=== PATIENT | female | born 1940 | race Caucasian/White ===

== ENCOUNTER → 2016-12-04 | Outpatient (CLI) | payer MEDICARE, OTHER ==
[~2016-12-04] MED LIST: AMLO10TA2 PO; ASPI-146 PO; COMMODE 3-IN-11 MIS; CPMMACHINE; FISH1200 PO; GLUC500T4 PO; LABE200T2 PO; LACTCAP8 PO; METH500T PO; OXYC1TAB63 PO; SACC1CAP3 PO; TELM1TAB4 PO; VITA2000 PO; WALKER WHEELS/F1 MIS; XARE10TA PO
[2016-12-04 09:18] LABS: AUTOMATED NEUTROPHIL # 3.5 TH/MM3 (1.8-7.7); BASOPHIL % 0.8 % (0.0-2.0); EOSINOPHIL # 0.2 TH/MM3 (0-0.4); EOSINOPHIL % 3.4 % (0.0-4.0); HEMATOCRIT 40.9 % (35.0-46.0); HEMO FLAGS DIFF FINAL; LYMPH % 27.1 % (9.0-44.0); LYMPHOCYTE # 1.6 TH/MM3 (1.0-4.8); MEAN CELL VOLUME 85.3 FL (80.0-100.0); MEAN CORPUSCULAR HEMOGLOBIN 29.1 PG (27.0-34.0); MEAN CORPUSCULAR HGB CONC 34.1 % (32.0-36.0); MONO % 10.2 % (0.0-8.0); NEUT % 58.5 % (16.0-70.0); PLATELET COUNT 303 TH/MM3 (150-450); RED BLOOD COUNT 4.79 MIL/MM3 (4.00-5.30); RED CELL DISTRIBUTION WIDTH 13.8 % (11.6-17.2)
[2016-12-04 09:23] LABS: APTT (PATIENT) 26.7 SEC (24.3-30.1); INTERNATIONAL NORMALIZED RATIO 0.9 RATIO; PROTHROMBIN TIME - PATIENT 10.2 SEC (9.8-11.6)
[2016-12-04 09:25] LABS: BLOOD, URINE NEG (NEG); COMMENT (UR) CATH-CULT NOT IND; CULTURE IF INDICATED CATH CULTURE NOT IND; GLUCOSE,URINE NEG (NEG); KETONE, URINE NEG (NEG); MUCUS URINE FEW /lpf (OCC); NITRITE,URINE NEG (NEG); PH, URINE 5.5 (5.0-8.5); SQUAMOUS EPITHELIAL CELL URINE <1 /hpf (0-5); URINE COLOR YELLOW (YELLW/STRAW)
[2016-12-04 09:50] LABS: BICARBONATE 24.7 MEQ/L (21.0-32.0); POTASSIUM 3.7 MEQ/L (3.5-5.1)
[2016-12-04 10:33] LABS: WESTERGREN SEDIMENTATION RATE 14 mm/hr (0-30)
--- NOTE | 2016-12-05 05:26 | EKG ---
Date Performed: 12/04/2016 Time Performed: 08:26:32 PTAGE: 76 years EKG: ECTOPIC ATRIAL RHYTHM WITH FIRST DEGREE AV BLOCK POSSIBLE RIGHT VENTRICULAR HYPERTROPHY ABN ORMAL ECG NO PREVIOUS TRACING DOCTOR: Anand Andrews Interpretating Date/Time 12/05/2016 05:16:32
== END ==
LOC: CPRE 07:57
PROVIDERS: ATTEND Orthopaedic Surgery Orthopaedic Surgery of the Spine
DX: Z01.810 Encounter for preprocedural cardiovascular examination (principal); Z01.812 Encounter for preprocedural laboratory examination; M17.11 Unilateral primary osteoarthritis, right knee; R94.31 Abnormal electrocardiogram [ECG] [EKG]
CPT/HCPCS: 36415; 80048; 81001; 85025; 85610; 85652; 85730; 93005

== ENCOUNTER 2016-12-15 05:20 | Inpatient (IN) | payer MEDICARE, OTHER ==
[~2016-12-15] VITALS: Ht 162.6 cm; Wt 89.5 kg
[~2016-12-15 05:20] MED LIST changes: -COMMODE 3-IN-11 MIS; -CPMMACHINE; -OXYC1TAB63 PO; -WALKER WHEELS/F1 MIS; -XARE10TA PO
[2016-12-15] MEDS ORDERED: CHLORHEXIDINE GLUCONATE 2 % 1 PACK (2 CLOTHS) TOPICAL PRN (06:00)
[2016-12-15] MEDS ORDERED: LACTATED RINGER'S 1000 ML IV PRN (06:00)
[2016-12-15] MEDS ORDERED: POVIDONE IODINE 5% (ANTISEPSIS KIT) 4 APPLICATIONS EACH NARE PRN (06:00)
[2016-12-15] MEDS ORDERED: METOPROLOL TARTRATE 25 MG TAB PO PRN (06:00)
[2016-12-15] MEDS ORDERED: INSULIN HUMAN REGULAR 1,000 UNITS/10 ML VIAL SQ PRN (06:00)
[2016-12-15] MEDS ORDERED: SODIUM CHLORID 0.9% 500 ML IV PRN (06:00)
--- NOTE | 2016-12-15 06:00 | MH ---
cc: RODRIGUEZ COLE M.D. DATE OF ADMISSION: 12/15/2016 ADMISSION DIAGNOSIS Osteoarthritis of the left knee. HISTORY This is a 76-year-old female with significant left knee pain. Investigative studies show evidence of extensive arthritis of the left knee. Despite conservative care the patient is painful and symptomatic. She presents for surgical treatment. PAST MEDICAL HISTORY, SOCIAL HISTORY, FAMILY HISTORY, REVIEW OF SYSTEMS See attached notes. PHYSICAL EXAMINATION GENERAL: A 76-year-old female in moderate distress with her left knee. HEENT: Normocephalic, atraumatic. Pupils equal, round, reactive to light and accommodation. Extraocular motions intact. NECK: Supple. CHEST: Clear. HEART: Regular rate and rhythm. ABDOMEN: Soft, nontender with normoactive bowel sounds. MUSCULOSKELETAL EXAMINATION: Left knee pain with range of motion, moderate deformity, pain with range of motion. Neurologic vascular examination within normal limits. IMPRESSION Osteoarthritis of the left knee. PLAN Left total knee replacement arthroplasty. CONSENT There are risks with surgery including infection, bleeding, loss of motion, continued pain, need for further surgery, neurologic and vascular injury. The patient understands these issues and wishes to press on with the surgery as outlined above. MD SHEREE Yanez/IVETH /11:25 PM /5:52 AM
[2016-12-15] MEDS ORDERED: GENTAMICIN SULFATE 80 MG/2 ML VIAL ONE (06:08)
[2016-12-15] MEDS ORDERED: VANCOMYCIN 1000 MG/NS 250 ML (for <70 kg) IV SCH ×2 (06:15)
[2016-12-15] MEDS ORDERED: ceFAZolin 2 GM PREMIX 50 ML IV SCH (06:15)
[2016-12-15] MEDS ORDERED: POVIDONE IODINE 7.5% SCRUB 118 ML BOTTLE TOPICAL SCH (06:15)
[2016-12-15] MEDS ORDERED: TRANEXAMIC ACID INJ 890 MG in SODIUM CHLORIDE 0.9% INJ 100 ML IV SCH (06:15)
[2016-12-15] MEDS ORDERED: EXPAREL PERI-ARTICULAR INJECTION (TOTAL VOL. 60 ML) P-ARTICULR SCH ×2 (06:15)
[2016-12-15] MEDS ORDERED: CLINDAMYCIN PHOS 600 MG/4 ML VIAL ONE ×2 (06:48→06:53)
[2016-12-15] MEDS ORDERED: ACETAMINOPHEN 1000 MG/100 ML 100 ML IV ONE (07:08)
[2016-12-15] MEDS ORDERED: FAMOTIDINE 20 MG/2 ML VIAL ONE (07:09)
[2016-12-15] MEDS ORDERED: CLINDAMYCIN 600 MG/NS 100 ML IV PRN ×2 (07:15)
[2016-12-15] MEDS ORDERED: BUPIVACAINE HCL PF 0.5% 30 ML VIAL ONE (07:33)
[2016-12-15] MEDS ORDERED: XARE10TA PO (07:58)
[2016-12-15] MEDS ORDERED: OXYC1TAB63 PO (07:58)
[2016-12-15] MEDS ORDERED: MORPHINE SULFATE 8 MG/ML INJ IM PRN (08:00)
[2016-12-15] MEDS ORDERED: MISCELLANEOUS PHARMACY INFORMATION XX ONE (08:00)
[2016-12-15] MEDS ORDERED: oxyCODONE/ACETAMINOPHEN 5 MG/325 MG TAB PO PRN (08:00)
[2016-12-15] MEDS ORDERED: SODIUM CHLORIDE 0.9% FLUSH 5 ML FLUSH IVF PRN (08:00)
[2016-12-15] MEDS ORDERED: TEMAZEPAM 15 MG CAP PO PRN (08:00)
[2016-12-15] MEDS ORDERED: MISCELLANEOUS NURSING INFORMATION XX PRN (08:00)
[2016-12-15] MEDS ORDERED: NALOXONE HCL 0.4 MG/ML AMP IV PUSH PRN (08:00)
[2016-12-15] MEDS ORDERED: Post-op Orders (for Pharmacy) MISC XX ONE (08:00)
[2016-12-15] MEDS: LABETALOL HCL 200 MG TAB PO SCH ×2 (09:00→20:58)
[2016-12-15] MEDS: METHYLDOPA 500 MG TAB PO SCH ×2 (09:00→20:58)
[2016-12-15] MEDS: MAGNESIUM HYDROXIDE SUSP 30 ML CUP PO SCH ×2 (09:00→20:57)
[2016-12-15] MEDS ORDERED: TELMISARTAN HYDROCHLOROTHIAZIDE PO SCH (09:00)
[2016-12-15] MEDS: SODIUM CHLORIDE 0.9% FLUSH 5 ML FLUSH IVF SCH ×2 (09:00→20:54)
--- NOTE | 2016-12-15 09:19 | PD.OP ---
cc: Anurag Hahn MD Operative Report Date of Surgery: Dec 15, 2016 Preoperative Diagnosis: Osteoarthritis left knee Postoperative Diagnosis: Same Procedure: Left total knee replacement arthroplasty Anesthesia: Gen. with regional block Surgeon: Anurag Hahn Software Consultant(s): JENIFER Mason Operation and Findings: EBL: 50 cc INDICATION: This patient presents with long-standing arthritis of the knee. Attachment record documents conservative measures. The patient now presents for surgical treatment. NOTE: Mayte Mason PA-C was present for the entire surgical procedure as my biology research assistant. In my medical opinion her skill and care was necessary for proper management of this patient. TOURNIQUET TIME: 48 minutes COMPANY: [employer] FEMUR: Size 3, cruciate retaining TIBIA: Size 3, fixed bearing PATELLA: 35 mm POLYETHYLENE INSERT: 9 mm PROCEDURE: This patient was brought the operating room and anesthetized in the supine position. The patient was positioned supine on the table. The tourniquet was placed about the thigh, and the leg was scrubbed with alcohol followed by Hibiclens followed by ChloraPrep and draped sterilely. A timeout was done, and antibiotics were given. After exsanguination the tourniquet was inflated to 250 mmHg. An anterior incision was made and a median parapatellar arthrotomy was performed. The patella was released laterally and subluxed allowing freehand cut of the patella which was then sized. A metal cap was placed over the exposed patellar surface for protection. A towing pilot hole was placed in the distal femur allowing a 5 valgus cut removing 10 mm from the distal femur. Anterior posterior and chamfer cuts were made. The posterior stabilize osteotomy was made. The attention was directed to the tibia. Retractors were positioned. The external alignment guide was used allowing the lateral tibia to be used as referencing guide and cut utilizing an oscillating saw taking care to avoid any injury to the surrounding soft tissues. This was sized properly. Trial reduction showed that the insert fit nicely. The patient had range of motion extension 0 flexion 125. A medial release was not necessary. The bony surfaces prepared. On the back table 2 packets of methylmethacrylate were mixed. The components were cemented. Excess cement was removed. The tourniquet let down and hemostasis was controlled. The final plastic insert was inserted. Range of motion was the same as previously noted. A drain was brought through a separate stab incision. The arthrotomy was repaired with interrupted #1 Vicryl suture, subcutaneous tissue 2-0 Vicryl suture and skin with metallic virgen A sterile dressing was applied. Sponge counts, needle counts and instrument counts were all correct. The patient tolerated procedure well and was taken to recovery in satisfactory condition. FINDINGS: There was severe osteoarthritis of the knee. Contractures were released. Vital stability was felt to be excellent. No complication was appreciated. Anurag Hahn MD Dec 15, 2016 09:19
[2016-12-15] MEDS ORDERED: *RESP: ALBUTEROL 2.5 MG/3 ML NEB (PRN) PERIprocedural Use ONLY NEB ONE (09:53)
[2016-12-15] MEDS ORDERED: DO NOT ADM ANY ANTICOAGULANT DRUGS PRN (10:15)
[2016-12-15] MEDS ORDERED: *morphine SULFATE 8 MG/ML PERIprocedure ONLY ONE (10:18)
[2016-12-15] MEDS: LACTATED RINGER'S 1000 ML INJ 1,000 ML IV SCH ×2 (10:31→20:58)
[2016-12-15] MEDS: MORPHINE SULFATE 30 MG/30 ML PCA IV SCH ×2 (10:33→14:30)
--- NOTE | 2016-12-15 10:39 | RADRPT ---
EXAM DATE/TIME: 12/15/2016 09:56 [facility] COMPARISON: No previous studies available for comparison. INDICATIONS : Post op total left knee replacement. MEDICAL HISTORY : Osteoarthritis. Hypertension Gastroesophageal reflux disease. SURGICAL HISTORY : Total knee replacement, left. Hemmorhoidectomy. ENCOUNTER: Initial ACUITY: 1 day PAIN SCORE: 5/10 LOCATION: Left knee FINDINGS: Patient is status post placement of a left knee prosthesis. There is good position and alignment of t he prosthesis and bony structures. The bony structures are grossly intact. Postsurgical changes are p resent. CONCLUSION: Good position and alignment on this postoperative examination. Tello Reynolds MD on December 15, 2016 at 10:38 Board Certified Radiologist. This report was verified electronically.
[2016-12-15] MEDS ORDERED: ROCURONIUM INJ 50 MG/5 ML SYRINGE IV PUSH ONE (12:00)
[2016-12-15] MEDS ORDERED: GLYCOPYRROLATE 1 MG/5 ML VIAL IV PUSH ONE (12:00)
[2016-12-15] MEDS ORDERED: PROPOFOL 200 MG/20 ML AMP IV ONE (12:00)
[2016-12-15] MEDS ORDERED: MIDAZOLAM HCL 2 MG/2 ML VIAL IV ONE (12:00)
[2016-12-15] MEDS ORDERED: DEXAMETHASONE SOD PHOS 4 MG/ML VIAL IV ONE (12:00)
[2016-12-15] MEDS ORDERED: ONDANSETRON HCL 4 MG/2 ML VIAL IV PUSH ONE (12:00)
[2016-12-15] MEDS ORDERED: LIDOCAINE HCL 1% PF 5 ML AMPULE OTHER ONE (12:00)
[2016-12-15] MEDS ORDERED: ePHEDrine/NS 25 MG/5 ML SYR IV ONE (12:00)
[2016-12-15] MEDS ORDERED: PHENYLEPH/NS 1000 MCG/10 ML SYR IV ONE (12:00)
[2016-12-15] MEDS ORDERED: NEOSTIGMINE 3 MG/3 ML SYR IV ONE (12:00)
[2016-12-15] MEDS: PCA - TOTAL MG MORPHINE DELIVERED PER SHIFT SCH ×2 (14:00→22:00)
[2016-12-15] MEDS: HYDROCHLOROTHIAZIDE 12.5 MG CAP PO SCH (15:00)
[2016-12-15] MEDS: LOSARTAN 50 MG TAB PO SCH (15:00)
[2016-12-15 15:41] VITALS: BP 137/77; PULSE 72; RESP 19; TEMP 95.4; O2SAT 97
[2016-12-15 19:13] VITALS: BP 138/75; PULSE 86; RESP 18; TEMP 97.1; O2SAT 94
[2016-12-15 19:50] VITALS: O2SAT 97
[2016-12-15] MEDS: SENNOSIDES 8.6 MG TAB PO SCH (20:57)
[2016-12-15 23:09] VITALS: BP 153/87; PULSE 90; RESP 18; TEMP 97.7; O2SAT 96
[2016-12-16] VITALS (7 sets, daily range): BP systolic 103–155; BP diastolic 61–76; PULSE 70–87; RESP 15–19; TEMP 96.4–99.5; O2SAT 93–96
[2016-12-16] MEDS: oxyCODONE/ACETAMINOPHEN 5 MG/325 MG TAB PO PRN ×4 (04:27→19:57)
[2016-12-16] MEDS: PCA - TOTAL MG MORPHINE DELIVERED PER SHIFT SCH (06:00)
[2016-12-16] MEDS: METHYLDOPA 500 MG TAB PO SCH ×2 (08:15→19:57)
[2016-12-16] MEDS: RIVAROXABAN 10 MG TAB PO SCH (08:16)
[2016-12-16] MEDS: LOSARTAN 50 MG TAB PO SCH (08:16)
[2016-12-16] MEDS: MAGNESIUM HYDROXIDE SUSP 30 ML CUP PO SCH ×2 (08:18→19:56)
[2016-12-16 08:21] LABS: REVIEW FLAG FINAL
[2016-12-16] MEDS: LABETALOL HCL 200 MG TAB PO SCH ×2 (08:24→19:57)
[2016-12-16] MEDS: SODIUM CHLORIDE 0.9% FLUSH 5 ML FLUSH IVF SCH ×2 (08:24→20:01)
[2016-12-16] MEDS: LACTATED RINGER'S 1000 ML INJ 1,000 ML IV SCH ×2 (08:24→20:02)
[2016-12-16] MEDS: HYDROCHLOROTHIAZIDE 12.5 MG CAP PO SCH (08:24)
[2016-12-16] MEDS ORDERED: CPMMACHINE (08:31)
[2016-12-16] MEDS ORDERED: WALKER WHEELS/F1 MIS (08:32)
[2016-12-16] MEDS ORDERED: COMMODE 3-IN-11 MIS (08:33)
--- NOTE | 2016-12-16 08:35 | HHI.DCPOC ---
Discharge Care Plan Diagnosis: (1) Osteoarthritis of left knee Your Health Problems Are: Incision/Drains Swelling Goals to Promote Your Health * To prevent worsening of your condition and complications * To maintain your health at the optimal level Directions to Meet Your Goals Take your medications as prescribed Follow your dietary instruction Follow activity as directed Keep your appointments as scheduled Take your immunizations and boosters as scheduled If your symptoms worsen call your PCP, if no PCP go to Urgent Care Center or Emergency Room Smoking is Dangerous to Your Health. Avoid second hand smoke Call the 24-hour hour crisis hotline for domestic abuse at Cristina Judd Dec 16, 2016 08:35
--- NOTE | 2016-12-16 08:37 | HHI.FF ---
Face to Face Verification Diagnosis: (1) Osteoarthritis of left knee Physical Therapy Gait training, Safety evaluation, Transfer training, bed to chair Knee: Total knee, Protocol: Left, Full weight bearing Canvas Knee Splint: When in bed & 2 pillows btw thighs Additional Instructions PT 4 days/wk for 10 days. WBAT LLE. TKA precautions. CPM twice daily as tolerated, 0-60 with goal 100 flexion. Nursing RN Days per Week: 2 x Week(s): 1 Dressing Changes: Do not change dressing Additional Instructions Vitals assessment. Dressing assessment - do not change unless saturated or erythema I have seen patient Felisha Antunez on 12/16/16. My clinical findings support the need for the requested home health care services because: Limited ability to care for self High risk of falls I certify that my clinical findings support that this patient is homebound because: Post-op weakness Unsteady gait/balance Cristina Judd Dec 16, 2016 08:37
--- NOTE | 2016-12-16 08:39 | HHI.DS ---
Discharge Summary Admission Date Dec 15, 2016 at 05:20 Discharge Date: Dec 17, 2016 Admitting Diagnosis see below Diagnosis: (1) Osteoarthritis of left knee Diagnosis: Principal ICD Codes: M17.12 - Unilateral primary osteoarthritis, left knee Procedures Left total knee arthroplasty Brief History This is a 76 year old female patient CBC/BMP: 12/16/16 0712 Significant Findings Laboratory Tests Test 12/16/16 07:12 Hematocrit 34.0 % (35.0-46.0) Hospital Course Surgical treatment was performed on the day of admission without complications. She was found to be stable in PACU and transferred to the orthopaedic floor. Pain was controlled with IV and oral medications. DVT prophylaxis was initiated pod#1 with xarelto. The patient was compliant with physical therapy and all activity modifications. After _3__ days she was found to be stable and discharged __SNF . oxycodone xarelto Pt Condition on Discharge: Stable Discharge Disposition: Discharge to SNF Discharge Instructions Diet Instructions: As Tolerated, No Restrictions, High Fiber Diet Activities You Can Perform: Weight Bearing as Kathryn Activities to Avoid: Strenuous Activity Additional Activity Instruc.: TKA precautions New Medications: Commode 3-in-1 (Commode 3-in-1) 1 Mis Mis EA .ROUTE DIRECTED, #1 0 Refills CPM-Continuous Passive Motion Machine (CPM-Continuous Passive Motion Machine) 1 Ea Device EA .ROUTE DIRECTED, #1 0 Refills Walker with Front Wheels (Walker with Front Wheels) 1 Mis Mis EA .ROUTE DIRECTED, #1 0 Refills Oxycodone-Acetaminophen (Oxycodone-Acetaminophen) 5-325 mg Tab 1 TAB PO Q4H PRN for PAIN, #50 TAB Rivaroxaban (Xarelto) 10 Mg Tab 10 MG PO Q24H for Prevent Blood Clot, #15 TAB Continued Medications: Amlodipine (Amlodipine) 10 Mg Tab 10 MG PO DAILY for Blood Pressure Management, #30 TAB 0 Refills Cholecalciferol (Vitamin D3) 2,000 Unit Cap 2000 UNITS PO DAILY for Nutritional Supplement, #1 BOTTLE 0 Refills Glucosamine-Chondroitin (Glucosamine-Chondroitin) 500-400 Mg Tab 1 TAB PO DAILY for Herbal Supplements, TAB 0 Refills Labetalol (Labetalol) 200 Mg Tab 200 MG PO BID for Blood Pressure Management, TAB 0 Refills Lactobacillus Acidophilus (Probiotic) 10 Billion Cell Cap 3 CAP PO DAILY for Nutritional Supplement, #90 CAP 0 Refills Methyldopa (Methyldopa) 500 Mg Tab 500 MG PO BID for Blood Pressure Management, TAB 0 Refills [place]-3 Fatty Acids (Fish Oil 1200 mg) 360 Mg-1,200 Mg Cap 1 CAP PO DAILY Saccharomyces Boulardii (Probiotic) 250 Mg Cap 250 MG PO BID for Nutritional Supplement, CAP 0 Refills Telmisartan-Hydrochlorothiazide (Telmisartan-Hydrochlorothiazide) 80-12.5 Mg Tab 1 TAB PO DAILY for Blood Pressure Management, #30 TAB 0 Refills Discontinued Medications: Aspirin DR (Ecotrin Regular Strength) 325 Mg Tabdr 325 MG PO DAILY, #30 TAB 0 Refills Cristina Judd Dec 16, 2016 08:39
--- NOTE | 2016-12-16 13:12 | PD.ORT.PN ---
Subjective Subjective Remarks Doing better this morning. She has already gotten out of bed and walked twice. She struggled with sedation and hallucination last night after using the morphine. That was discontinued and she improved greatly. She notes left knee pain but fewer spasms than preop. She is pleased and states she can 'already tell a difference'. Denies CP, SOB or abd pain. Objective Vitals Vital Signs Date Time Temp Pulse Resp B/P (MAP) Pulse Ox O2 Delivery O2 Flow Rate FiO2 12/16/16 11:49 98.3 70 19 103/61 (75) 94 12/16/16 08:00 98.8 81 19 119/62 (81) 94 12/16/16 03:58 98.8 87 18 141/75 (97) 93 12/15/16 23:09 97.7 90 18 153/87 (109) 96 12/15/16 19:50 97 21 12/15/16 19:13 97.1 86 18 138/75 (96) 94 12/15/16 15:41 95.4 72 19 137/77 (97) 97 I/O 12/15/16 12/15/16 12/15/16 12/16/16 12/16/16 12/16/16 07:00 15:00 23:00 07:00 15:00 23:00 Intake Total 925 ml 1126 ml 762 ml Output Total 3090 ml 80 ml 90 ml Balance -2165 ml 1046 ml 672 ml Intake Oral 480 ml 360 ml IV Total 925 ml 646 ml 402 ml Output Drainage Total 40 ml 80 ml 90 ml Estimated Blood Loss 50 ml Other 3000 ml # Voids 3 3 # Bowel Movements 0 0 Result Diagram: 12/16/16 0712 Procedures Left total knee arthroplasty Objective Remarks Sitting up in chair, Granddaughter Carlota at bedside NAD AAOx3 LLE Dressing intact, mild drainage, drain in place, mild swelling, no erythema thigh and calf supple, neg homans +motor at, +sens, +nvi Assessment & Plan Ortho Post Op Day #: 1 Problem List: (1) Osteoarthritis of left knee ICD Codes: M17.12 - Unilateral primary osteoarthritis, left knee Qualifiers: Qualified Codes: M17.12 - Unilateral primary osteoarthritis, left knee Assessment and Plan pod#1 s/p L TKA Ortho stable. AAOx3 despite hx of sedation last night. COUNTY ADMINISTRATOR dc'd. PO meds as needed. D/C left knee drain. Ok to change drain site dressing only. Hold off on changing incision dressing. Xarelto 10mg qd. PT - WBAT LLE. CPM bid. D/C planning, likely SNF wednesday. DME written. Cristina Judd Dec 16, 2016 13:12
[2016-12-16] MEDS: SENNOSIDES 8.6 MG TAB PO SCH (19:56)
[2016-12-17] VITALS: BP 141/65; PULSE 84; RESP 18; TEMP 95.9; O2SAT 93
[2016-12-17 08:00] VITALS: BP 139/71; PULSE 83; RESP 18; TEMP 97.2; O2SAT 95
[2016-12-17] MEDS: LOSARTAN 50 MG TAB PO SCH (08:42)
[2016-12-17] MEDS: LABETALOL HCL 200 MG TAB PO SCH ×2 (08:42→21:30)
[2016-12-17] MEDS: METHYLDOPA 500 MG TAB PO SCH ×2 (08:42→21:31)
[2016-12-17] MEDS: SODIUM CHLORIDE 0.9% FLUSH 5 ML FLUSH IVF SCH ×2 (08:43→21:00)
[2016-12-17] MEDS: HYDROCHLOROTHIAZIDE 12.5 MG CAP PO SCH (08:43)
[2016-12-17] MEDS: MAGNESIUM HYDROXIDE SUSP 30 ML CUP PO SCH ×2 (08:43→21:00)
[2016-12-17] MEDS: RIVAROXABAN 10 MG TAB PO SCH (08:43)
--- NOTE | 2016-12-17 08:47 | PD.ORT.PN ---
Subjective Subjective Remarks She continues to improve. She was able to get ample rest last night. She has made progress with PT. Still planning on d/c to SNF tomorrow. Objective Vitals Vital Signs Date Time Temp Pulse Resp B/P (MAP) Pulse Ox O2 Delivery O2 Flow Rate FiO2 12/17/16 00:00 95.9 84 18 141/65 (90) 93 12/16/16 19:44 96 21 12/16/16 19:00 99.5 85 15 155/76 (102) 95 12/16/16 15:36 96.4 77 19 125/70 (88) 96 12/16/16 11:49 98.3 70 19 103/61 (75) 94 12/16/16 09:48 95 I/O 12/16/16 12/16/16 12/16/16 12/17/16 12/17/16 12/17/16 07:00 15:00 23:00 07:00 15:00 23:00 Intake Total 762 ml 850 ml 480 ml 480 ml Output Total 90 ml Balance 672 ml 850 ml 480 ml 480 ml Intake Oral 360 ml 850 ml 480 ml 480 ml IV Total 402 ml Output Drainage Total 90 ml # Voids 3 4 3 2 # Bowel Movements 0 0 1 0 Result Diagram: 12/16/16 0712 Procedures Left total knee arthroplasty Objective Remarks Sitting up in bed, Granddaughter Carlota at bedside NAD AAOx3 LLE Dressing intact, no new draiange, drain removed and site clear, mild swelling, no erythema thigh and calf supple, neg homans +motor at, +sens, +nvi Assessment & Plan Ortho Post Op Day #: 2 Problem List: (1) Osteoarthritis of left knee ICD Codes: M17.12 - Unilateral primary osteoarthritis, left knee Qualifiers: Qualified Codes: M17.12 - Unilateral primary osteoarthritis, left knee Assessment and Plan pod#2 s/p L TKA Ortho stable. Continues to improve. [employer]OR EXPRESS CLERK dc'd. PO meds as needed. Hold dressing changes unless saturated. Xarelto 10mg qd. PT - WBAT LLE. CPM bid. D/C planning, likely SNF wednesday. DME written. Cristina Judd Dec 17, 2016 08:47
[2016-12-17] MEDS: LACTATED RINGER'S 1000 ML INJ 1,000 ML IV SCH ×2 (09:50→22:20)
[2016-12-17 12:00] VITALS: BP 92/56; PULSE 66; RESP 18; TEMP 97.4; O2SAT 94
[2016-12-17 16:00] VITALS: BP 151/70; PULSE 72; RESP 18; TEMP 97.4; O2SAT 97
[2016-12-17] MEDS: oxyCODONE/ACETAMINOPHEN 5 MG/325 MG TAB PO PRN (19:30)
[2016-12-17 20:00] VITALS: BP 136/72; PULSE 81; RESP 16; TEMP 99.9; O2SAT 95
[2016-12-17] MEDS: SENNOSIDES 8.6 MG TAB PO SCH (21:00)
[2016-12-18] VITALS: BP 152/83; PULSE 82; RESP 16; TEMP 97.6; O2SAT 96
[2016-12-18 04:00] VITALS: BP 121/73; PULSE 69; RESP 17; TEMP 97.7; O2SAT 95
[2016-12-18 07:47] VITALS: BP 134/74; PULSE 75; RESP 19; TEMP 96.9; O2SAT 93
--- NOTE | 2016-12-18 08:25 | PD.ORT.PN ---
Subjective Subjective Remarks She states she had another 'good night' last night. She is pleased. She only took 'a couple' pain pills yesterday. No new complaints. She is ready for d/c to SNF. Objective Vitals Vital Signs Date Time Temp Pulse Resp B/P (MAP) Pulse Ox O2 Delivery O2 Flow Rate FiO2 12/18/16 07:47 96.9 75 19 134/74 (94) 93 12/18/16 04:00 97.7 69 17 121/73 (89) 95 12/18/16 00:00 97.6 82 16 152/83 (106) 96 12/17/16 20:00 99.9 81 16 136/72 (93) 95 12/17/16 16:00 97.4 72 18 151/70 (97) 97 12/17/16 12:00 97.4 66 18 92/56 (68) 94 I/O 12/17/16 12/17/16 12/17/16 12/18/16 12/18/16 12/18/16 07:00 15:00 23:00 07:00 15:00 23:00 Intake Total 480 ml 1680 ml 480 ml Balance 480 ml 1680 ml 480 ml Intake Oral 480 ml 1680 ml 480 ml # Voids 2 5 2 # Bowel Movements 0 1 Result Diagram: 12/16/16 0712 Procedures Left total knee arthroplasty Objective Remarks Sitting up in chair, Granddaughter Carlota at bedside NAD AAOx3 LLE Dressing intact, no new drainage, drain removed and site clear, mild swelling, no erythema thigh and calf supple, neg homans +motor at, +sens, +nvi Assessment & Plan Ortho Post Op Day #: 3 Problem List: (1) Osteoarthritis of left knee ICD Codes: M17.12 - Unilateral primary osteoarthritis, left knee Qualifiers: Qualified Codes: M17.12 - Unilateral primary osteoarthritis, left knee Assessment and Plan pod#3 s/p L TKA Ortho stable. Ok to d/c to SNF later today after PT. PO pain meds as needed. Hold dressing changes unless saturated. Xarelto 10mg qd. PT - WBAT LLE. CPM bid. F/U in 2 weeks as scheduled. DME written. [id number] signed. Cristina Judd Dec 18, 2016 08:24
[2016-12-18] MEDS: LABETALOL HCL 200 MG TAB PO SCH (08:53)
[2016-12-18] MEDS: SODIUM CHLORIDE 0.9% FLUSH 5 ML FLUSH IVF SCH (08:53)
[2016-12-18] MEDS: MAGNESIUM HYDROXIDE SUSP 30 ML CUP PO SCH (08:54)
[2016-12-18] MEDS: HYDROCHLOROTHIAZIDE 12.5 MG CAP PO SCH (08:54)
[2016-12-18] MEDS: METHYLDOPA 500 MG TAB PO SCH (08:55)
[2016-12-18] MEDS: RIVAROXABAN 10 MG TAB PO SCH (08:55)
[2016-12-18] MEDS: LOSARTAN 50 MG TAB PO SCH (08:55)
[2016-12-18] MEDS: oxyCODONE/ACETAMINOPHEN 5 MG/325 MG TAB PO PRN (08:58)
[2016-12-18] MEDS: LACTATED RINGER'S 1000 ML INJ 1,000 ML IV SCH (10:50)
[2016-12-18 10:52] VITALS: BP 88/53; PULSE 69
[2016-12-18 11:45] VITALS: BP 96/57; PULSE 68; RESP 19; TEMP 97.8; O2SAT 93
== END 2016-12-18 11:58 | DRG 470 ==
LOC: HSDI 05:20 → N06A 13:43
PROVIDERS: ADMIT Orthopaedic Surgery Orthopaedic Surgery of the Spine; ATTEND Orthopaedic Surgery Orthopaedic Surgery of the Spine
PROC: 3E0T3BZ Introduction of Anesthetic Agent into Peripheral Nerves and Plexi, Percutaneous Approach (ICD-10-PCS; 2016-12-15)
PROC: 0SRD0J9 Replacement of Left Knee Joint with Synthetic Substitute, Cemented, Open Approach (ICD-10-PCS; principal; 2016-12-15 07:18)
DX: M17.12 Unilateral primary osteoarthritis, left knee (principal); I10 Essential (primary) hypertension; R44.3 Hallucinations, unspecified; E78.5 Hyperlipidemia, unspecified; K21.9 Gastro-esophageal reflux disease without esophagitis; Z87.891 Personal history of nicotine dependence; T40.2X5A Adverse effect of other opioids, initial encounter
CPT/HCPCS: 73560; 85014; 85018; 86850; 86900; 86901; 86920; 94150; 94664; C1776; C9290; J0131; J0690; J1100; J1580; J2250; J2270; J2370; J2405; J2710; J3010; J3370; J7050; J7120; J7613; L1830

== ENCOUNTER 2017-07-06 09:00 | Inpatient (IN) | payer MEDICARE, MEDICAID ==
[~2017-07-06] VITALS: Ht 163.8 cm; Wt 87.4 kg
[~2017-07-06 09:00] MED LIST changes: -ASPI-146 PO; -FISH1200 PO; -LABE200T2 PO; -METH500T PO; -SACC1CAP3 PO; +WALKER WHEELS/F1 MIS
[2017-07-19] MEDS ORDERED: LOPE-1 PO (15:31)
[2017-07-20] MEDS ORDERED: OMEGCAP PO (08:21)
[2017-07-20] MEDS ORDERED: MELA1TAB18 PO (08:21)
[2017-07-20] MEDS ORDERED: CRANCAP10 PO (08:21)
[2017-07-20] MEDS ORDERED: ASPI81TA23 PO (08:21)
[2017-07-20] MEDS ORDERED: METO1TAB43 PO (08:21)
[2017-07-22] MEDS ORDERED: SODIUM CHLORID 0.9% 500 ML IV PRN (09:00)
[2017-07-22] MEDS ORDERED: INSULIN HUMAN REGULAR 1,000 UNITS/10 ML VIAL SQ PRN (09:00)
[2017-07-22] MEDS ORDERED: METOPROLOL TARTRATE 25 MG TAB PO PRN (09:00)
[2017-07-22] MEDS ORDERED: POVIDONE IODINE 5% (ANTISEPSIS KIT) 4 APPLICATIONS EACH NARE PRN (09:00)
[2017-07-22] MEDS ORDERED: LACTATED RINGER'S 1000 ML IV PRN (09:00)
[2017-07-22] MEDS ORDERED: CHLORHEXIDINE GLUCONATE 2 % 1 PACK (2 CLOTHS) TOPICAL PRN (09:00)
[2017-07-22] MEDS ORDERED: FAT EMULSION 20% INJ 0 ML ONE (09:11)
[2017-07-22] MEDS ORDERED: CHLORHEXIDINE GLUCONATE 4% SOLN 120 ML BTL TOPICAL SCH (09:15)
[2017-07-22] MEDS ORDERED: ceFAZolin 2 GM PREMIX 50 ML IV SCH (09:15)
[2017-07-22] MEDS ORDERED: EXPAREL PERI-ARTICULAR INJECTION (TOTAL VOL. 60 ML) P-ARTICULR SCH ×2 (09:15)
[2017-07-22] MEDS ORDERED: SODIUM CHLORIDE 0.9% IV SCH (09:15)
[2017-07-22] MEDS ORDERED: TRANEXAMIC ACID IV SCH (09:15)
[2017-07-22] MEDS ORDERED: VANCOMYCIN 1 GM/200 ML PREMIX IV SCH (09:15)
[2017-07-22] MEDS ORDERED: GENTAMICIN SULFATE 80 MG/2 ML VIAL ONE (09:48)
[2017-07-22] MEDS ORDERED: BUPIVACAINE/EPINEPHRINE 0.5% PF 10 ML VIAL ONE (09:48)
[2017-07-22 09:54] VITALS: PULSE 75
[2017-07-22] MEDS ORDERED: BUPIVACAINE LIPOSOME PF 1.3% 20 ML VIAL ONE (10:25)
[2017-07-22] MEDS ORDERED: MIDAZOLAM HCL 5 MG/5 ML VIAL ONE (10:25)
[2017-07-22] MEDS ORDERED: PROPOFOL 200 MG/20 ML AMP IV ONE (12:00)
[2017-07-22] MEDS ORDERED: PHENYLEPH/NS 1000 MCG/10 ML SYR IV ONE (12:00)
[2017-07-22] MEDS ORDERED: DEXAMETHASONE SOD PHOS 4 MG/ML VIAL IV ONE (12:00)
[2017-07-22] MEDS ORDERED: ePHEDrine/NS 25 MG/5 ML SYRINGE IV ONE (12:00)
[2017-07-22] MEDS ORDERED: LIDOCAINE HCL 1% PF 5 ML SYRINGE OTHER ONE (12:00)
[2017-07-22] MEDS ORDERED: ONDANSETRON HCL 4 MG/2 ML VIAL IV ONE (12:00)
[2017-07-22] MEDS ORDERED: MORPHINE SULFATE 8 MG/ML INJ IM PRN (14:30)
[2017-07-22] MEDS ORDERED: NALOXONE HCL 0.4 MG/ML AMP IV PUSH PRN (14:30)
[2017-07-22] MEDS ORDERED: TEMAZEPAM 15 MG CAP PO PRN (14:30)
[2017-07-22] MEDS ORDERED: ALUMINUM/MAGNESIUM/SIMETH 30 ML CUP PO PRN (14:30)
[2017-07-22] MEDS ORDERED: ASPIRIN EC 81 MG TABEC PO ONE (14:30)
[2017-07-22] MEDS ORDERED: Post-op Orders (for Pharmacy) XX ONE (14:30)
[2017-07-22] MEDS ORDERED: ONDANSETRON HCL 4 MG/2 ML VIAL IVP PRN (14:30)
[2017-07-22] MEDS ORDERED: diphenhydrAMINE HCL 25 MG CAP PO PRN (14:30)
[2017-07-22] MEDS ORDERED: oxyCODONE/ACETAMINOPHEN 5 MG/325 MG TAB PO PRN (14:30)
--- NOTE | 2017-07-22 14:37 | PD.OP ---
cc: Anurag Hahn MD Operative Report Date of Surgery: July 22, 2017 Preoperative Diagnosis: Osteoarthritis right knee. Valgus deformity, right knee Postoperative Diagnosis: Same Procedure: Right total knee replacement arthroplasty Anesthesia: General with regional for pain control Surgeon: Anurag Hahn Medical Surgical Tech(s): JENIFER Mason Operation and Findings: EBL: 150 INDICATION: This patient presents with long-standing arthritis of the knee. Attachment record documents conservative measures. The patient now presents for surgical treatment. NOTE: Jessica Mason PA-C was present for the entire surgical procedure as my entry level assistant manager. In my medical opinion her skill and care was necessary for proper management of this patient. TOURNIQUET TIME: 65 minutes COMPANY: [employer] FEMUR: Size 6, posterior stabilized TIBIA: Size 5, fixed-bearing PATELLA: 35 mm POLYETHYLENE INSERT: 10 mm PROCEDURE: This patient was brought the operating room and anesthetized in the supine position. The patient was positioned supine on the table. The tourniquet was placed about the thigh, and the leg was scrubbed with alcohol followed by Hibiclens followed by ChloraPrep and draped sterilely. A timeout was done, and antibiotics were given. After exsanguination the tourniquet was inflated to 250 mmHg. An anterior incision was made and a median parapatellar arthrotomy was performed. The patella was released laterally and subluxed allowing freehand cut of the patella which was then sized. A metal cap was placed over the exposed patellar surface for protection. A menhaden vessel pilot hole was placed in the distal femur allowing a 6 valgus cut removing 9 mm from the distal femur. Anterior posterior and chamfer cuts were made. The posterior stabilize osteotomy was made. The attention was directed to the tibia. Retractors were positioned. The external alignment guide was used allowing the lateral tibia to be used as referencing guide and cut utilizing an oscillating saw taking care to avoid any injury to the surrounding soft tissues. This was sized properly. Trial reduction showed that the insert fit nicely. The patient had range of motion extension 0 flexion 125 . A medial release was not necessary. A lateral release was necessary. The bony surfaces prepared. On the back table 2 packets of methylmethacrylate were mixed. The components were cemented. Excess cement was removed. The tourniquet let down and hemostasis was controlled. The final plastic insert was inserted. Range of motion was the same as previously noted. A drain was brought through a separate stab incision. The arthrotomy was repaired with interrupted #1 Vicryl suture, subcutaneous tissue 2-0 Vicryl suture and skin with metallic virgen A sterile dressing was applied. Sponge counts, needle counts and instrument counts were all correct. The patient tolerated procedure well and was taken to recovery in satisfactory condition. FINDINGS: There was no complication that was appreciated. The overall bone quality was fairly poor likely related to osteopenia/osteoporosis. Anurag Hahn MD July 22, 2017 14:37
[2017-07-22] MEDS ORDERED: ECASA81 PO (14:43)
[2017-07-22] MEDS ORDERED: OXYC1TAB63 PO (14:43)
[2017-07-22] MEDS ORDERED: DO NOT ADM ANY ANTICOAGULANT DRUGS PRN (14:44)
[2017-07-22] MEDS ORDERED: HYDROmorphone HCL PF 0.5 MG/0.5 ML SYRINGE IV PUSH PRN (14:45)
[2017-07-22] MEDS: LACTATED RINGER'S 1000 ML INJ 1,000 ML IV SCH (14:50)
--- NOTE | 2017-07-22 15:25 | RADRPT ---
EXAM DATE: 07/22/2017 3:19 PM EDT AGE/SEX: 76 years / Female INDICATIONS: Post op right knee surgery. CLINICAL DATA: This is the patient's initial encounter. Patient reports that signs and symptoms have been present for 1 day and indicates a pain score of 5/10. MEDICAL/SURGICAL HISTORY: None. None. COM[place] [facility] [place] [facility] [place]1 OR 2VWS[place] 12/15/2016. . FINDINGS: Bony structures are intact and in normal alignment. There is a total right knee prosthesis which appe ars appropriate in position. Overlying drains are noted. No complications noted. CONCLUSION: Status post total knee arthroplasty with good anatomic alignment. Electronically signed by: Beatrice Hodges MD 07/22/2017 3:24 PM EDT
[2017-07-22 19:53] VITALS: BP 149/76; PULSE 78; RESP 17; TEMP 97.2; O2SAT 94
[2017-07-22] MEDS: oxyCODONE/ACETAMINOPHEN 5 MG/325 MG TAB PO PRN (21:55)
[2017-07-22] MEDS: MELATONIN 5 MG TAB PO PRN (21:55)
[2017-07-22] MEDS: ASPIRIN EC 81 MG TABEC PO SCH (21:55)
[2017-07-22 23:00] VITALS: BP 137/75; PULSE 84; RESP 17; TEMP 97.5; O2SAT 94
[2017-07-23] MEDS: LACTATED RINGER'S 1000 ML INJ 1,000 ML IV SCH ×2 (02:57→15:27)
[2017-07-23 03:35] VITALS: BP 135/84; PULSE 92; RESP 17; TEMP 97.9; O2SAT 94
[2017-07-23 05:24] LABS: HEMATOCRIT 36.9 % (35.0-46.0); HEMOGLOBIN 12.4 GM/DL (11.6-15.3)
--- NOTE | 2017-07-23 07:44 | HHI.DCPOC ---
Discharge Care Plan Diagnosis: (1) Osteoarthritis of right knee Your Health Problems Are: Difficulty with ADL Incision/Drains Swelling Goals to Promote Your Health * To prevent worsening of your condition and complications * To maintain your health at the optimal level Directions to Meet Your Goals Take your medications as prescribed Follow your dietary instruction Follow activity as directed Keep your appointments as scheduled Take your immunizations and boosters as scheduled If your symptoms worsen call your PCP, if no PCP go to Urgent Care Center or Emergency Room Smoking is Dangerous to Your Health. Avoid second hand smoke Call the 24-hour hour crisis hotline for domestic abuse at Cristina Judd July 23, 2017 07:44
--- NOTE | 2017-07-23 07:46 | HHI.DS ---
Discharge Summary Admission Date July 22, 2017 at 08:09 Discharge Date: July 25, 2017 Admitting Diagnosis see below Diagnosis: (1) Osteoarthritis of right knee Diagnosis: Principal ICD Codes: M17.11 - Unilateral primary osteoarthritis, right knee Procedures Right total knee arthroplasty Brief History This is a 76 year old female patient with a history of bilateral knee pain. She pursued conservative measures for several years including medications and injections. She underwent left total knee replacement and did well. Her right knee function continued to decline so surgical treatment was recommended. She agreed and now presents for the above. CBC/BMP: 07/23/17 0442 Significant Findings Laboratory Tests Test 07/23/17 04:42 Hospital Course D/C to SNF. Pt Condition on Discharge: Stable Discharge Disposition: Discharge to SNF Discharge Instructions Diet Instructions: As Tolerated, No Restrictions, High Fiber Diet Activities You Can Perform: Weight Bearing as Kathryn Activities to Avoid: Strenuous Activity Additional Activity Instruc.: TKA protocol New Medications: Aspirin DR (Aspirin DR) 81 Mg Tabdr 81 MG PO BID for Prevent Blood Clot, #60 TAB Oxycodone HCl/Acetaminophen (Oxycodone-Acetaminophen 5-325) 5 Mg-325 Mg Tablet 1 TAB PO Q4H PRN for Pain, #42 TAB Continued Medications: Amlodipine (Amlodipine) 10 Mg Tab 10 MG PO DAILY for Blood Pressure Management, #30 TAB 0 Refills Cholecalciferol (Vitamin D3) 2,000 Unit Cap 2000 UNITS PO DAILY for Nutritional Supplement, #1 BOTTLE 0 Refills Cranberry-Vitamin C-Vitamin E (Cranberry Plus Vitamin C) 4,200-20-3 Mg-Mg-Unit Cap 1 TAB PO DAILY Glucosamine-Chondroitin (Glucosamine-Chondroitin) 500-400 Mg Tab 1 TAB PO DAILY for Herbal Supplements, TAB 0 Refills Lactobacillus Acidophilus (Probiotic) 10 Billion Cell Cap 3 CAP PO DAILY for Nutritional Supplement, #90 CAP 0 Refills Loperamide (Imodium A-D) 2 Mg Capsule 2 MG PO DIRECTED PRN for DIARRHEA, CAP 0 Refills One capsule after each loose stool. Not to exceed 8 tablets per day. Melatonin (Melatonin) 10 Mg-1 Mg Tab 10 MG PO HS PRN for SLEEP, TAB 0 Refills Metoprolol Succinate ER 24 HR (Metoprolol Succinate ER 24 HR) 100 Mg Tab 100 MG PO DAILY, #30 TAB 0 Refills Telmisartan-Hydrochlorothiazide (Telmisartan-Hydrochlorothiazide) 80-12.5 Mg Tab 1 TAB PO DAILY for Blood Pressure Management, #30 TAB 0 Refills Discontinued Medications: Aspirin DR (Aspirin EC) 81 Mg Tabdr 81 MG PO DAILY, TAB 0 Refills Fish Oil-Cholecalciferol ([place]-3 Fish Oil/Vitamin) 1,000-1,000 Mg Cap 1 CAP PO DAILY for Nutritional Supplement, CAP 0 Refills Cristina Judd July 23, 2017 07:46
[2017-07-23] MEDS ORDERED: COMMODE 3-IN-11 MIS (07:47)
[2017-07-23] MEDS ORDERED: CPMMACHINE (07:47)
[2017-07-23] MEDS ORDERED: WALKER WHEELS/F1 MIS (07:48)
[2017-07-23 08:00] VITALS: BP 149/71; PULSE 85; RESP 18; TEMP 97.6; O2SAT 95
--- NOTE | 2017-07-23 08:01 | PD.ORT.PN ---
Subjective Subjective Remarks Doing well. Moderate right knee pain 'as expected'. No new complaints. No CP or SOB. Considering discharge to SNF. Objective Vitals Vital Signs Date Time Temp Pulse Resp B/P (MAP) Pulse Ox O2 Delivery O2 Flow Rate FiO2 07/23/17 05:02 21 07/23/17 03:35 97.9 92 17 135/84 (101) 94 07/22/17 23:00 97.5 84 17 137/75 (95) 94 07/22/17 19:53 97.2 78 17 149/76 (100) 94 07/22/17 18:10 69 18 133/76 (95) 93 Nasal Cannula 2 07/22/17 17:00 67 18 134/78 (96) 96 Nasal Cannula 2 07/22/17 16:00 69 18 130/76 (94) 97 Nasal Cannula 2 07/22/17 15:45 67 18 142/79 (100) 96 Nasal Cannula 2 07/22/17 15:30 72 18 145/88 (107) 96 Nasal Cannula 2 07/22/17 15:15 72 18 145/88 (107) 94 Nasal Cannula 2 07/22/17 15:00 73 18 144/81 (102) 94 Nasal Cannula 2 07/22/17 14:42 97.6 70 18 127/70 (89) 95 Nasal Cannula 4 07/22/17 10:51 73 18 102/58 (73) 98 07/22/17 09:54 97 Nasal Cannula 07/22/17 09:54 75 07/22/17 09:53 98.0 69 20 148/73 (98) 96 I/O 07/22/17 07/22/17 07/22/17 07/23/17 07/23/17 07/23/17 07:00 15:00 23:00 07:00 15:00 23:00 Intake Total 2000 ml 1501 ml Output Total 100 ml 205 ml 70 ml Balance 1900 ml -205 ml 1431 ml Intake Oral 360 ml IV Total 1141 ml Other 2000 ml Output Drainage Total 205 ml 70 ml Estimated Blood Loss 100 ml # Voids 4 # Bowel Movements 0 Result Diagram: 07/23/17 8802 Imaging Last 24 hours Impressions Knee X-Ray 07/22/17 6394 Signed Impressions: CONCLUSION: Status post total knee arthroplasty with good anatomic alignment. Procedures Right total knee arthroplasty Objective Remarks Laying in bed NAD VSS RLE Knee dressing c/d/i, lateral drain in place, mild swelling, no erythema +motor at, +sens, +nvi Neg homans Assessment & Plan Ortho Post Op Day #: 1 Problem List: (1) Osteoarthritis of right knee ICD Codes: M17.11 - Unilateral primary osteoarthritis, right knee Qualifiers: Qualified Codes: M17.11 - Unilateral primary osteoarthritis, right knee Assessment and Plan pod#1 s/p R TKA Ortho stable. Pain moderately controlled. Continue PO meds as needed, Percocet 5mg. ASA 81mg for dvt prophylaxis. D/C knee drain. Ok to redress drain site. Hold dressing changes. PT - WBAT. TKA protocol. CPM bid as tolerated 0-60 w goal 100 flexion. D/C planning, SNF wednesday. F/U in 2 weeks as scheduled. Cristina Judd July 23, 2017 08:01
[2017-07-23] MEDS: HYDROCHLOROTHIAZIDE 12.5 MG CAP PO SCH (10:17)
[2017-07-23] MEDS: LOSARTAN 50 MG TAB PO SCH (10:21)
[2017-07-23] MEDS: ASPIRIN EC 81 MG TABEC PO SCH ×2 (10:22→22:09)
[2017-07-23] MEDS: METOPROLOL SUCCINATE 50 MG EXTENDED RELEASE TAB PO SCH (10:22)
[2017-07-23] MEDS: oxyCODONE/ACETAMINOPHEN 5 MG/325 MG TAB PO PRN ×2 (10:25→18:56)
[2017-07-23 11:49] VITALS: BP 125/64; PULSE 73; RESP 19; TEMP 98.4; O2SAT 99
[2017-07-23 16:16] VITALS: BP 132/71; PULSE 80; RESP 19; TEMP 98.4; O2SAT 98
[2017-07-23 19:46] VITALS: BP 115/67; PULSE 69; RESP 18; TEMP 98.5; O2SAT 93
[2017-07-23] MEDS: MELATONIN 5 MG TAB PO PRN (22:13)
[2017-07-24 00:52] VITALS: BP 101/51; PULSE 68; RESP 20; TEMP 98.1; O2SAT 95
[2017-07-24] MEDS: LACTATED RINGER'S 1000 ML INJ 1,000 ML IV SCH ×2 (03:57→16:22)
[2017-07-24 04:55] VITALS: BP 132/65; PULSE 80; RESP 18; TEMP 98.1; O2SAT 93
--- NOTE | 2017-07-24 07:29 | PD.ORT.PN ---
Subjective Subjective Remarks pt has post-operative knee pain Objective Vitals Vital Signs Date Time Temp Pulse Resp B/P (MAP) Pulse Ox O2 Delivery O2 Flow Rate FiO2 07/24/17 04:55 98.1 80 18 132/65 (87) 93 07/24/17 00:52 98.1 68 20 101/51 (68) 95 07/23/17 19:46 98.5 69 18 115/67 (83) 93 07/23/17 16:16 98.4 80 19 132/71 (91) 98 07/23/17 11:49 98.4 73 19 125/64 (84) 99 07/23/17 08:00 97.6 85 18 149/71 (97) 95 I/O 07/23/17 07/23/17 07/23/17 07/24/17 07/24/17 07/24/17 07:00 15:00 23:00 07:00 15:00 23:00 Intake Total 1501 ml 960 ml 540 ml Output Total 70 ml Balance 1431 ml 960 ml 540 ml Intake Oral 360 ml 960 ml 540 ml IV Total 1141 ml Output Drainage Total 70 ml # Voids 4 4 3 # Bowel Movements 0 1 Result Diagram: 07/23/17 0442 Imaging Last 24 hours Impressions Knee X-Ray 07/22/17 1427 Signed Impressions: CONCLUSION: Status post total knee arthroplasty with good anatomic alignment. Procedures Right total knee arthroplasty Objective Remarks Laying in bed, grand-daughter in room NAD VSS RLE Knee dressing c/d/i, mild swelling, no erythema +motor at, +sens, +nvi Neg homans Assessment & Plan Problem List: (1) Osteoarthritis of right knee ICD Codes: M17.11 - Unilateral primary osteoarthritis, right knee Qualifiers: Qualified Codes: M17.11 - Unilateral primary osteoarthritis, right knee Assessment and Plan pod #2 s/p R TKA Ortho stable. Pain moderately controlled. Continue PO meds as needed, Percocet 5mg. ASA 81mg for dvt prophylaxis. Hold dressing changes. PT - WBAT. TKA protocol. CPM bid as tolerated 0-60 w goal 100 flexion. D/C planning, SNF wednesday. F/U in 2 weeks as scheduled. Mika Hahn MD July 24, 2017 07:29
[2017-07-24 08:00] VITALS: BP 137/69; PULSE 72; RESP 18; TEMP 98.4; O2SAT 94
[2017-07-24] MEDS: LOSARTAN 50 MG TAB PO SCH (09:31)
[2017-07-24] MEDS: METOPROLOL SUCCINATE 50 MG EXTENDED RELEASE TAB PO SCH (09:31)
[2017-07-24] MEDS: HYDROCHLOROTHIAZIDE 12.5 MG CAP PO SCH (09:31)
[2017-07-24] MEDS: ASPIRIN EC 81 MG TABEC PO SCH ×2 (09:32→21:06)
[2017-07-24] MEDS: oxyCODONE/ACETAMINOPHEN 5 MG/325 MG TAB PO PRN ×2 (10:12→21:06)
[2017-07-24 12:00] VITALS: BP 120/57; PULSE 80; RESP 18; TEMP 97.9; O2SAT 98
[2017-07-24 16:00] VITALS: BP 110/56; PULSE 76; RESP 18; TEMP 98; O2SAT 95
[2017-07-24 20:30] VITALS: BP 119/69; PULSE 80; RESP 16; TEMP 100.1; O2SAT 94
[2017-07-25 00:15] VITALS: BP 112/57; PULSE 74; RESP 16; TEMP 98.6; O2SAT 93
[2017-07-25] MEDS: LACTATED RINGER'S 1000 ML INJ 1,000 ML IV SCH (04:57)
[2017-07-25 08:00] VITALS: BP 122/73; PULSE 71; RESP 17; TEMP 97.8; O2SAT 93
--- NOTE | 2017-07-25 08:18 | PD.ORT.PN ---
Subjective Subjective Remarks pt feeling much better, was able to sleep 11 hours last night Objective Vitals Vital Signs Date Time Temp Pulse Resp B/P (MAP) Pulse Ox O2 Delivery O2 Flow Rate FiO2 07/25/17 00:15 98.6 74 16 112/57 (75) 93 07/24/17 20:30 100.1 80 16 119/69 (86) 94 07/24/17 16:00 98.0 76 18 110/56 (74) 95 07/24/17 12:00 97.9 80 18 120/57 (78) 98 I/O 07/24/17 07/24/17 07/24/17 07/25/17 07/25/17 07/25/17 07:00 15:00 23:00 07:00 15:00 23:00 Intake Total 540 ml 480 ml Balance 540 ml 480 ml Intake Oral 540 ml 480 ml # Voids 3 4 3 # Bowel Movements 1 0 Result Diagram: 07/23/17 0442 Imaging Last 24 hours Impressions Knee X-Ray 07/22/17 1427 Signed Impressions: CONCLUSION: Status post total knee arthroplasty with good anatomic alignment. Procedures Right total knee arthroplasty Objective Remarks Laying in bed, daughter in room NAD, sitting in chair comfortably VSS RLE Knee dressing c/d/i, mild swelling, no erythema +motor at, +sens, +nvi Neg homans Assessment & Plan Problem List: (1) Osteoarthritis of right knee ICD Codes: M17.11 - Unilateral primary osteoarthritis, right knee Qualifiers: Qualified Codes: M17.11 - Unilateral primary osteoarthritis, right knee Assessment and Plan pod #3 s/p R TKA Ortho stable. Pain moderately controlled. Continue PO meds as needed, Percocet 5mg. ASA 81mg for dvt prophylaxis. Hold dressing changes. PT - WBAT. TKA protocol. CPM bid as tolerated 0-60 w goal 100 flexion. discharge to SNF today, orthopedically stable F/U in 2 weeks as scheduled. Sheron Harper July 25, 2017 08:18
[2017-07-25] MEDS: HYDROCHLOROTHIAZIDE 12.5 MG CAP PO SCH (09:18)
[2017-07-25] MEDS: ASPIRIN EC 81 MG TABEC PO SCH (09:18)
[2017-07-25] MEDS: METOPROLOL SUCCINATE 50 MG EXTENDED RELEASE TAB PO SCH (09:19)
[2017-07-25] MEDS: LOSARTAN 50 MG TAB PO SCH (09:19)
[2017-07-25 12:00] VITALS: BP 122/60; PULSE 69; RESP 17; TEMP 98.1; O2SAT 94
[2017-07-25] MEDS: oxyCODONE/ACETAMINOPHEN 5 MG/325 MG TAB PO PRN (12:34)
[2017-07-25 16:00] VITALS: BP 141/63; PULSE 73; RESP 17; TEMP 98.2; O2SAT 97
== END 2017-07-25 16:44 | DRG 470 ==
LOC: HSDI 07-22 08:09 → N06B 07-22 18:31
PROVIDERS: ADMIT Orthopaedic Surgery Orthopaedic Surgery of the Spine; ATTEND Orthopaedic Surgery Orthopaedic Surgery of the Spine
PROC: 3E0T3BZ Introduction of Anesthetic Agent into Peripheral Nerves and Plexi, Percutaneous Approach (ICD-10-PCS; 2017-07-22)
PROC: 0SRC0J9 Replacement of Right Knee Joint with Synthetic Substitute, Cemented, Open Approach (ICD-10-PCS; principal; 2017-07-22 11:51)
DX: M17.11 Unilateral primary osteoarthritis, right knee (principal); E66.9 Obesity, unspecified; M81.0 Age-related osteoporosis without current pathological fracture; M21.061 Valgus deformity, not elsewhere classified, right knee; Z96.652 Presence of left artificial knee joint; K21.9 Gastro-esophageal reflux disease without esophagitis; E78.00 Pure hypercholesterolemia, unspecified; Z68.32 Body mass index [BMI] 32.0-32.9, adult; Z87.891 Personal history of nicotine dependence
CPT/HCPCS: 36415; 73560; 85014; 85018; 85610; 85730; 86850; 86900; 86901; 86920; 94150; C1776; C9290; J0690; J1100; J1580; J2250; J2370; J2405; J3010; J3370; J7120; L1830

== ENCOUNTER → 2017-07-19 | Outpatient (CLI) | payer MEDICARE, MEDICAID ==
[~2017-07-19] MED LIST changes: +ASPI81TA23 PO; +COMMODE 3-IN-11 MIS; +CPMMACHINE; +CRANCAP10 PO; +ECASA81 PO; +FISH1200 PO; +LABE200T2 PO; +LOPE-1 PO; +MELA1TAB18 PO; +METH500T PO; +METO1TAB43 PO; +OMEGCAP PO; +OXYC1TAB63 PO; +SACC1CAP3 PO; +XARE10TA PO
== END ==
LOC: CLAB 15:01
PROVIDERS: ATTEND Orthopaedic Surgery Orthopaedic Surgery of the Spine
DX: Z01.818 Encounter for other preprocedural examination (principal); M17.11 Unilateral primary osteoarthritis, right knee; Z79.01 Long term (current) use of anticoagulants
CPT/HCPCS: 36415; 85610; 85730